=== PATIENT | male | born 1975 | race Caucasian/White ===

== ENCOUNTER 2023-12-09 22:39 | Emergency (ER) | payer OTHER, SELFPAY ==
[2023-12-09 22:39] VITALS: BP 140/81; PULSE 74; RESP 18; TEMP 36.6; O2SAT 98; BMI 39.8
[2023-12-09 22:41] VITALS: BP 140/81; PULSE 74; RESP 18; TEMP 36.6; O2SAT 98
--- NOTE | 2023-12-09 23:08 | RAD_ITS ---
INDICATION: ? osteo EXAMINATION/TECHNIQUE: X-RAY - RIGHT XR Tibia/Fibula 2 Views 4 images COMPARISON: No relevant prior comparison study available FINDINGS: SOFT TISSUES: Mild diffuse soft tissue swelling. No radiopaque foreign body. BONES/JOINTS: No acute fracture or subluxation.. Normal alignment of the knee and ankle. Preservation of the joint space.. No sclerotic or destructive changes observed. RAD/Tibia & Fibula 2 Views IMPRESSION: No fracture or malalignment. No osseous erosion. Electronically Signed: Pa Lechuga MD at 23:55 EDT ,
--- NOTE | 2023-12-09 23:08 | RAD_ITS ---
INDICATION: pain EXAMINATION/TECHNIQUE: X-RAY - RIGHT XR Knee 3 Views 3 VIEWS COMPARISON: No relevant prior comparison study available FINDINGS: SOFT TISSUES: Diffuse soft tissue swelling. No radiopaque foreign body. BONES/JOINTS: No acute fracture or subluxation.. Normal alignment. Preservation of the joint space.. No sclerotic or destructive changes observed. Enthesophyte formation of the patella. RAD/Knee 3 Views IMPRESSION: No fracture or malalignment. Soft tissue swelling. Electronically Signed: Pa Lechuga MD at 0:09 EDT ,
[2023-12-09 23:34] LABS: Absolute Lymphocyte Count 2.32 X10^3/uL (0.83-4.51); Absolute Neutrophil Count 7.4 X10^3/uL (2.0-7.7); Basophil# 0.03 X10^3/uL; Basophil% 0.3 % (0-1); Eosinophil# 0.03 X10^3/uL; Eosinophils% 0.3 % (0-5); Hematocrit 42.7 % (40-54); Hemoglobin 14.4 g/dL (13.0-16.5); Lymphocyte # 2.32 X10^3/ul (0.83-4.51); Lymphocyte % 21.7 % (19-41); Mean Corp Hgb Conc 33.7 g/dL (32-36); Mean Corpuscular Hgb 30.1 pg (27.0-32.0); Mean Corpuscular Volume 89.1 fL (80-94); Mean Platelet Vol. 9.4 fl (6.2-12.0); Monocyte# 0.82 X10^3/uL; Monocyte% 7.7 % (0-10); NRBC Flagged by Analyzer 0 % (0-5); Neutrophil # 7.43 X10^3/uL (2.7-7.7); Neutrophil % 69.5 % (47-70); Platelet Count 228 K/mm3 (150-450); RBC Distribution Width CV 12.2 % (11.6-14.6); RBC Distribution Width SD 39.9 fl (35.1-43.9); Red Blood Count 4.79 M/mm3 (4.6-6.2); White Blood Count 10.7 K/mm3 (4.4-11.0)
[2023-12-09 23:41] VITALS: BP 144/70; PULSE 78; RESP 18; TEMP 36.8; O2SAT 96
[2023-12-09 23:46] LABS: Anion Gap 5 (5-15); BUN 18 mg/dL (7-18); BUN/Creat Ratio 11.7 RATIO (10-20); Calcium,Total 8.8 mg/dL (8.5-10.1); Chloride 108 mmol/L (98-107); Creatinine, Serum 1.54 mg/dL (0.70-1.30); EST Glomerular Filtration Rate 51 mL/min (>60); Est Glom Filt Rate - Afr Amer 62 mL/min (>60); Estimated Creatinine Clearance 81.97 ml/min; Glucose 123 mg/dL (74-106); Potassium 3.7 mmol/L (3.5-5.1); Sodium Level 139 mmol/L (136-145)
[2023-12-09] MEDS: Vancomycin HCl 2,000 MG in 0.9% Normal Saline (500mL Bag) 500 ML 250 MG IV (23:49)
[2023-12-09 23:57] LABS: Procalcitonin 0.12 ng/mL (0.00-0.09)
[2023-12-10] VITALS: BP 144/70; PULSE 72; RESP 18; TEMP 36.6; O2SAT 97
[2023-12-10 00:06] LABS: Lactic Acid 1.4 mmol/L (0.4-1.9)
--- NOTE | 2023-12-10 00:54 | EX.ED.DYSGE1 ---
HPI History of Present Illness Chief Complaint: Cellulitis Informant: patient and spouse/S.O. Narrative Narrative: Patient is a 48-year-old male who reports no significant past medical history other than an abscess of the left foot which led to cellulitis and need for IV antibiotics. He denies any history of immunosuppression. He reports in the last 24 to 48 hours she noticed pain along the right knee and rasmussen without trauma. He states he developed redness swelling and warmth which concerned him for secondary infection and therefore comes in for evaluation. [facility] Medical History Tear of meniscus of knee joint Hypercholesteremia Pleurisy Abscess Home Medications ?Medication ?Instructions ?Recorded ?Last Taken ?Type oxycodone 5 mg tablet 5 mg PO Q4H PRN PRN Moderate Pain 03/17/17 Unknown Rx (pain scale 4-5) #20 tabs pantoprazole 20 mg tablet,delayed 20 mg PO DAILY 03/17/17 Unknown Rx release sulfamethoxazole 800 2 tab PO BIDCM #20 tabs 03/17/17 Unknown Rx mg-trimethoprim 160 mg tablet clindamycin HCl 300 mg capsule 300 mg PO 4X/DAY 10 days #40 12/10/23 Unknown Rx (Cleocin HCl) CAPSULES Allergy/AdvReac Type Severity Reaction Status Date / Time morphine Allergy Severe Angioedema Verified 12/09/23 22:42 metronidazole (From Flagyl) AdvReac Rash Verified 12/09/23 22:42 Social History Smoking Status: Never smoker [facility] ED Constitutional Constitutional ED: Denies chills or fever(s) ENT ENT ED: Denies sore throat Cardiovascular Cardiovascular: Denies chest pain Respiratory/Chest Respiratory/Chest: Denies cough or dyspnea Gastrointestinal Gastrointestinal: Denies abdominal pain, diarrhea, nausea or vomiting Genitourinary Genitourinary ED: Denies dysuria Musculoskeletal Musculoskeletal: Reports other Details: Positive right knee and rasmussen pain Integumentary Reports other Details: Positive redness and swelling right lower leg Neurologic Neurologic: Denies headache(s), paresthesias or weakness Hematologic/Lymphatic Hematologic/Lymphatic: Denies easy bleeding or easy bruising Allergic/Immunologic Allergic/Immunologic ED: Denies urticaria EXAM Physical Exam Const Vital Signs: 12/09/23 22:39 12/09/23 22:41 12/09/23 23:41 Temperature 98 F 98 F 98.3 F Temperature Source Temporal Temporal Oral Pulse Rate 74 74 78 Respiratory Rate 18 18 18 Blood Pressure 140/81 H 140/81 H 144/70 H Blood Pressure Mean 100 100 94 Pulse Ox 98 98 96 Oxygen Delivery Method Room Air Room Air Room Air Positive well nourished and well developed General Appearance ED: well developed; Negative for pallor HEENT HEENT Narrative: Normocephalic atraumatic Eyes PERRL and EOMs intact bilaterally Neck supple Resp normal respiratory effort and clear to auscultation bilaterally Cardio regular rate and regular rhythm Extremity Extremity Narrative: Right lower extremity is neurovascularly intact. There is asymmetric soft tissue swelling to the right lower leg compared to left. There is asymmetric erythema that extends from roughly 2 inches above the ankle to 1 inch below the knee. The erythema and warmth is along the anterior aspect and travels medial and lateral but is not circumferential. No obvious abscess formation. No lymphangitic streaking. Negative Homans' sign bilaterally. Compartments are soft and compressible going against compartment syndrome The patient is able to bear weight and is able to flex the right knee going against septic joint Also there is no obvious joint effusion noted Neuro oriented x3, CN's II-XII intact bilaterally and no sensory deficits noted Sensorium / Orientation: alert Motor Exam: strength 5/5 throughout Psych mental status grossly normal Skin no wounds Skin Narrative: Soft tissue changes to the right lower leg as documented above General Skin Exam: Negative for jaundice or pallor MDM MDM MDM Narrative Medical decision making narrative: Patient arrived to the ER slightly hypertensive but otherwise with stable vitals. He reported redness and swelling to the right lower leg without trauma. Differential diagnosis is for cellulitis versus abscess versus DVT. The patient does not have any calf tenderness he is not tachycardic and has no risk factors for DVT/PE so I felt no need for a venous duplex. With concern for systemic infection or osteomyelitis secondary to the findings x-rays were obtained as well as basic blood work. Patient does not have leukocytosis neutrophilia or left shift. X-rays did not reveal any signs of osteomyelitis either. Therefore this time with stable vitals and no signs of systemic infection and the fact patient has not had oral antibiotics I do not feel there is need for admission. His physical exam also goes against septic joint as he can bear weight and flex his knee and therefore there is no need for emergent orthopedic consultation or joint aspiration. The patient will be started on antibiotics orally and will follow-up with family doctor for repeat evaluation. He understands to return to the hospital if there is no improvement with oral antibiotics or he develops a fever while on the medication History & Record Review Discussion w/independent historian: Patient and Significant other Lab Data Attestation: I reviewed the patient's lab results. Labs: Laboratory Results - last 24 hr 12/09/23 23:15 WBC 10.7 RBC 4.79 Hgb 14.4 Hct 42.7 MCV 89.1 MCH 30.1 MCHC 33.7 RDW Std Deviation 39.9 RDW Coeff of [place] 12.2 Plt Count 228 MPV 9.4 Immature Gran % (Auto) 0.500 Neut % (Auto) 69.5 Lymph % (Auto) 21.7 [place] % (Auto) 7.7 Eos % (Auto) 0.3 Baso % (Auto) 0.3 Absolute Neuts (auto) 7.4 Absolute Lymphs (auto) 2.32 Nucleated RBC % 0 Sodium 139 Potassium 3.7 Chloride 108 H Carbon Dioxide 26.0 Anion Gap 5 BUN 18 Creatinine 1.54 H Estim Creat Clear Calc 81.97 Est GFR (MDRD) Af Amer 62 Est GFR (MDRD) Non-Af 51 L BUN/Creatinine Ratio 11.7 Glucose 123 H Lactic Acid 1.4 Calcium 8.8 Procalcitonin 0.12 H Radiography Diagnostic Testing: Clinical Impression(s) from Imaging Studies Knee X-Ray 12/09/23 23:08 IMPRESSION: No fracture or malalignment. Soft tissue swelling. Electronically Signed: Pa Lechuga MD at 0:09 EDT , Tibia/Fibula X-Ray 12/09/23 23:08 IMPRESSION: No fracture or malalignment. No osseous erosion. Electronically Signed: Pa Lechuga MD at 23:55 EDT , X-ray of the right knee as interpreted by the emergency medicine physician reveals mild soft tissue swelling without acute fracture dislocation or joint effusion X-ray of the right tibia and fibula as interpreted by the emergency medicine physician reveals no acute fracture dislocation or signs of osteomyelitis. Discharge Plan Triage Chief Complaint: Cellulitis ED Provider: Marquis Peralta Dx/Rx/DC Orders Clinical Impression: Cellulitis of right anterior lower leg Instructions: Cellulitis Dc Prescriptions: New clindamycin HCl [Cleocin HCl] 300 mg capsule 300 mg PO 4X/DAY 10 Days Qty: 40 0RF No Action sulfamethoxazole-trimethoprim 1 TABLET tablet 2 tab PO BIDCM Qty: 20 0RF pantoprazole 20 MG tablet 20 mg PO DAILY 0RF oxycodone 5 MG tablet 5 mg PO Q4H PRN PRN (Reason: Moderate Pain (pain scale 4-5)) Qty: 20 0RF Primary Care Provider: GORDON ARAUJO Referrals: GORDON ARAUJO [Other] Activity Restrictions/Additional Instructions: Please take your antibiotic as directed to help resolve your infection and if you develop worsening of the redness temperature over 100.4 or lymphangitic streaking or any further concerns please return to the ER for repeat evaluation Print Language: Spanish Disposition Disposition: Home, Self Care
[2023-12-10 01:00] VITALS: BP 141/71; PULSE 78; RESP 18; TEMP 36.6; O2SAT 97
[2023-12-10 01:57] VITALS: BP 141/71; PULSE 68; RESP 18; TEMP 36.6; O2SAT 95
[2023-12-10 02:15] VITALS: BP 134/69; PULSE 79; RESP 18; TEMP 36.6; O2SAT 98
== END 2023-12-10 02:29 | disposition home or self-care (01) ==
PROVIDERS: Emergency Provider Emergency Medicine; Visit Provider Emergency Medicine
DX: L03.115 Cellulitis of right lower limb (principal); E78.00 Pure hypercholesterolemia, unspecified
CPT/HCPCS: 73562; 73590; 80048; 83605; 84145; 85025; 87040; 99283; J7030; J7040; J7050; A4216